=== PATIENT | male | born 1955 | race Caucasian/White ===

== ENCOUNTER 2020-12-19 08:51 | Outpatient (REF) | payer OTHER, SELFPAY ==
[2020-12-19 11:07] LABS: MANUAL DIFF FLAG NO
[2020-12-19 11:23] LABS: Basophils Percent Auto 0.6 % (0-2); Eosinophils Absolute Auto 0.3 X10*3/uL (0.0-0.4); Eosinophils Percent Auto 4.3 % (0-4); Imm Gran Abs Auto 0.04 X10*3/uL (0.00-0.03); Imm Gran Pct Auto 0.6 % (0.0-0.4); Lymphocytes Absolute Auto 1.9 X10*3/uL (1.2-4.9); Mean Corpuscular HGB Conc 33.3 g/dl (31.0-36.0); Mean Corpuscular Hemoglobin 32.1 pg (27.0-33.0); Mean Corpuscular Volume 96.4 fL (80-98); Mean Platelet Volume 10.5 fL (9.4-12.4); Monocytes Absolute Auto 0.7 X10*3/uL (0.1-1.2); Monocytes Percent Auto 10.4 % (2-11); Neutrophils Percent Auto 57.1 % (45-73); Platelet Count 194 X10*3/uL (160-400); Red Blood Count 5.29 X10*6/uL (4.60-5.80); Red Cell Distribution Width 12.5 % (11.0-16.0)
[2020-12-19 11:44] LABS: Estimated Average Glucose 123 mg/dL; Hemoglobin A1c % 5.9 %
[2020-12-19 12:08] LABS: Alanine Aminotransferase 108 U/L (0-40); Anion Gap 12 (12-20); Aspartate Amino Transferase 61 U/L (5-37); Blood Urea Nitrogen 15 mg/dL (9-16); Carbon Dioxide 30 mmol/L (22-29); Chloride 99 mmol/L (96-108); Glucose Fasting 116 mg/dL (60-99); Potassium 4.8 mmol/L (3.3-5.1); Sodium 136 mmol/L (135-145)
[2020-12-19 12:09] LABS: Creatinine Urine 146.68 mg/dL; Microalbum/Creatinine Ratio Ur 22.4 ug/mg cr
== END 2020-12-19 08:52 | disposition home or self-care (01) ==
LOC: HO.HMGCLDS 08:51
PROVIDERS: PCP Family Medicine; Visit Provider Family Medicine
DX: D45 Polycythemia vera (principal); I10 Essential (primary) hypertension; E11.9 Type 2 diabetes mellitus without complications; K75.81 Nonalcoholic steatohepatitis (NASH)
CPT/HCPCS: 36415; 80051; 82043; 82947; 83036; 84450; 84460; 84520; 85025

== ENCOUNTER 2021-06-17 07:54 | Outpatient (REF) | payer OTHER, SELFPAY ==
[2021-06-17 11:05] LABS: MANUAL DIFF FLAG NO
[2021-06-17 11:18] LABS: Basophils Percent Auto 0.6 % (0-2); Eosinophils Absolute Auto 0.2 X10*3/uL (0.0-0.4); Eosinophils Percent Auto 3.6 % (0-4); Hematocrit 48.4 % (42-52); Hemoglobin 16.3 g/dl (14.0-18.0); Imm Gran Abs Auto 0.03 X10*3/uL (0.00-0.03); Imm Gran Pct Auto 0.4 % (0.0-0.4); Lymphocytes Absolute Auto 1.8 X10*3/uL (1.2-4.9); Lymphocytes Percent Auto 27.3 % (20-40); Mean Corpuscular HGB Conc 33.7 g/dl (31.0-36.0); Mean Corpuscular Hemoglobin 32.2 pg (27.0-33.0); Mean Corpuscular Volume 95.7 fL (80-98); Mean Platelet Volume 10.7 fL (9.4-12.4); Monocytes Absolute Auto 0.8 X10*3/uL (0.1-1.2); Monocytes Percent Auto 11.2 % (2-11); Neutrophils Absolute Auto 3.8 X10*3/uL (2.0-8.3); Neutrophils Percent Auto 56.9 % (45-73); Platelet Count 195 X10*3/uL (160-400); Red Blood Count 5.06 X10*6/uL (4.60-5.80); Red Cell Distribution Width 12.7 % (11.0-16.0); White Blood Count 6.7 X10*3/uL (4.8-10.8)
[2021-06-17 12:01] LABS: Alanine Aminotransferase 72 U/L (0-40); Aspartate Amino Transferase 47 U/L (5-37); Glucose Fasting 111 mg/dL (60-99)
[2021-06-17 12:13] LABS: Estimated Average Glucose 114 mg/dL; Hemoglobin A1c % 5.6 %
== END 2021-06-17 07:55 | disposition home or self-care (01) ==
LOC: HO.HMGCLDS 07:54
PROVIDERS: PCP Family Medicine; Visit Provider Family Medicine
DX: E78.00 Pure hypercholesterolemia, unspecified (principal); E11.9 Type 2 diabetes mellitus without complications; K75.81 Nonalcoholic steatohepatitis (NASH)
CPT/HCPCS: 36415; 82947; 83036; 84450; 84460; 85025

== ENCOUNTER 2021-07-18 14:49 | Outpatient (REF) | payer OTHER, SELFPAY ==
[2021-07-18 15:52] LABS: Influenza A PCR NEGATIVE (Negative); Influenza B PCR NEGATIVE (Negative); Resp Syncy Virus RNA Qual PCR NEGATIVE (Negative); SARS COV2 PCR INHOUSE NEGATIVE (Negative)
== END 2021-07-18 14:50 | disposition home or self-care (01) ==
LOC: HO.LAB 14:49
PROVIDERS: PCP Family Medicine; Visit Provider Family Medicine
DX: Z20.822 Contact with and (suspected) exposure to COVID-19 (principal)
CPT/HCPCS: 0241U; 36415; C9803

== ENCOUNTER 2021-08-30 09:14 | Outpatient (REF) | payer OTHER, SELFPAY ==
[2021-08-30 11:20] LABS: MANUAL DIFF FLAG NO
[2021-08-30 11:34] LABS: Basophils Percent Auto 0.6 % (0-2); Eosinophils Absolute Auto 0.2 X10*3/uL (0.0-0.4); Eosinophils Percent Auto 3.4 % (0-4); Hemoglobin 16.4 g/dl (14.0-18.0); Imm Gran Abs Auto 0.03 X10*3/uL (0.00-0.03); Imm Gran Pct Auto 0.5 % (0.0-0.4); Lymphocytes Absolute Auto 1.7 X10*3/uL (1.2-4.9); Mean Corpuscular HGB Conc 34.9 g/dl (31.0-36.0); Mean Corpuscular Hemoglobin 32.9 pg (27.0-33.0); Mean Corpuscular Volume 94.2 fL (80.0-98.0); Mean Platelet Volume 10.5 fL (9.4-12.4); Monocytes Absolute Auto 0.7 X10*3/uL (0.1-1.2); Monocytes Percent Auto 11.6 % (2-11); Neutrophils Absolute Auto 3.6 x10*3/uL (2.0-8.3); Neutrophils Percent Auto 56.9 % (45-73); Platelet Count 183 X10*3/uL (160-400); Red Blood Count 4.99 X10*6/uL (4.60-5.80); Red Cell Distribution Width 12.7 % (11.0-16.0); White Blood Count 6.2 X10*3/uL (4.8-10.8)
[2021-08-30 11:45] LABS: Alanine Aminotransferase 66 U/L (0-40); Albumin Level 4.3 g/dL (3.5-5.0); Alkaline Phosphatase 53 U/L (39-117); Anion Gap 11 (12-20); Aspartate Amino Transferase 38 U/L (5-37); Bilirubin Total 0.9 mg/dL (0.0-1.0); Blood Urea Nitrogen 16 mg/dL (9-16); Calcium 9.4 mg/dL (8.4-10.2); Carbon Dioxide 26 mmol/L (22-29); Chloride 104 mmol/L (96-108); Estimated Glomerular Filt Rate > 60; Glucose Random 117 mg/dL (60-115); Potassium 4.4 mmol/L (3.3-5.1); Sodium 137 mmol/L (135-145); Total Protein 6.6 g/dL (6.5-8.0)
[2021-08-30 11:48] LABS: Cholesterol 168 mg/dL; Glucose Fasting 117 mg/dL (60-99); HDL Cholesterol 39 mg/dL; LDL Cholesterol Calculated 100 mg/dl; Triglycerides 145 mg/dL
[2021-08-30 12:17] LABS: Estimated Average Glucose 120 mg/dL; Hemoglobin A1c % 5.8 %
== END 2021-08-30 09:15 | disposition home or self-care (01) ==
LOC: HO.HMGCLDS 09:14
PROVIDERS: PCP Family Medicine; Visit Provider Dermatology
DX: E11.9 Type 2 diabetes mellitus without complications (principal); E78.00 Pure hypercholesterolemia, unspecified
CPT/HCPCS: 36415; 80053; 80061; 82947; 83036; 85025

== ENCOUNTER 2021-11-04 08:45 | Day surgery (SDC) | payer OTHER, SELFPAY ==
--- NOTE | 2021-11-04 09:09 | P.CONAN_ITS ---
HPI - Anesthesia Eval Consult details Narrative: 66 M for colonoscopy FORMERLY [facility] Past Medical History Medical History (Updated 10/28/21 @ 11:51 by Kylie Quevedo, RN) Elevated liver enzymes Family hx of colon cancer Fatty liver Gout History of pneumonia Psoriasis Family History Family history of problems with anesthesia: No Surgical History Surgical History (Updated 10/28/21 @ 11:51 by Kylie Quevedo RN) History of left inguinal hernia repair Hx of arthroscopy of left knee Hx of arthroscopy of right knee Hx of cholecystectomy Hx of colonoscopy Hx of eye surgery History of Problems with Anesthesia: No Social History Social History Patient Tobacco Use Status: Never used Tobacco Use of substances other than those prescribed or required for medical reasons: No Are you DNR?: No Advance Directives: No Advance Directives Information Provided: Yes Recently lost weight without trying: No Nutrition Risks: No Nutritional Risk Meds Allergies Allergy/AdvReac Type Severity Reaction Status Date / Time No Known Allergies Allergy Verified 11/04/21 09:15 [No Known Allergies*] Active Medications: Current Medications Sodium Biphosphate/Sodium Phosphate (Sodium Phosphate,Riley-Dibasic 133 Ml Enema) 133 ml [place] ONCE PRN PRN Reason: Poor Colonoscopy Prep Results Home Medications Medication Instructions Recorded Confirmed Last Taken Type allopurinol 300 mg tablet 300 mg PO DAILY 10/28/21 10/28/21 Unknown History aspirin 81 mg tablet,delayed 81 mg PO DAILY 10/28/21 10/28/21 Unknown History release guselkumab 100 mg/mL subcutaneous 100 mg SUBCUT Q8W 10/28/21 10/28/21 Unknown History auto-injector (Tremfya) lisinopril 10 mg tablet 10 mg PO DAILY 10/28/21 10/28/21 11/04/21 History Exam Exam Date and Time: November 04, [id number] Airway Mallampati Class: II TM Dist: >3cm Neck ROM: Full Loose/Missing/Broken Teeth: Yes (Chipped , fillings ) Heart: rrr Lungs: bl breath sounds Assessment and Plan Assessment Anesthesia Assessment: Anesthesia Plan Discussed Final Anesthetic Review Family History of Problems with Anesthesia: No History of Problems with Anesthesia: No NPO: Yes ASA Class: III and Final Preanesthetic Review: Meds/Allgs Chart Reviewed and Anes Risks/Benef Reviewed Patient Risk: Intermediate Procedure Risk: Intermediate Anesthetic Plan Anesthetic Plan: MAC: Disposition: Standard PACU
[2021-11-04 09:19] VITALS: BMI 37.3
[2021-11-04] MEDS: Lactated Ringers 1,000 ML 20 ML IVCONT (09:40)
[2021-11-04 09:41] VITALS: BP 141/86; PULSE 85; RESP 16; TEMP 36.6; O2SAT 95
--- NOTE | 2021-11-04 11:34 | PM.OP ---
Brief Operative Note Date of Service: 11/04/21 Pre-op diagnosis: Screening Post-op diagnosis: other (Colon polyp) Procedure: Colonoscopy roldan the cecum and TI with bx/removal of polyp Surgeon: Jhonny Still Anesthesia: MAC Was an College Admissions Counselor used for this Procedure?: No Estimated blood loss (mL): 2.0 Pathology: other (A. Polyp at 20cm) Condition: stable Disposition: PACU
[2021-11-04 11:35] VITALS: BP 101/59; PULSE 100; RESP 16; TEMP 36.7; O2SAT 95
[2021-11-04 11:50] VITALS: BP 111/85; PULSE 99; RESP 18; TEMP 36.7; O2SAT 97
--- NOTE | 2021-11-04 12:35 | OP_ITS ---
SURGEON: Jhonny Still MD INDICATIONS: The patient presents for evaluation of personal history of tubular adenoma of the colon, and family history of colon cancer. Full consent was obtained from him for this, including risks of bleeding and perforation. PREOPERATIVE DIAGNOSIS: POSTOPERATIVE DIAGNOSIS: PROCEDURE PERFORMED: Colonoscopy to the cecum and terminal ileum with biopsy and removal of polyp. ESTIMATED BLOOD LOSS: COMPLICATIONS: ANESTHESIA: Monitored anesthesia care. ASSISTANTS: SPECIMENS: PREOPERATIVE DIAGNOSES: Colorectal cancer screening, personal history of tubular adenoma of the colon, and family history of colon cancer. POSTOPERATIVE DIAGNOSES: Colorectal cancer screening, personal history of tubular adenoma of the colon, family history of colon cancer, small colon polyp, diverticulosis, and internal hemorrhoids. DESCRIPTION OF PROCEDURE: The patient was placed in the left lateral decubitus position. The digital rectal exam revealed no abnormalities. The Olympus video pediatric colonoscope was entered into the rectum and advanced easily to the cecum. Once in the cecum, I did identify normal-appearing cecal pouch with appendiceal orifice and a normal-appearing ileocecal valve. The terminal ileum was cannulated and appeared normal. The scope was withdrawn back in the colon. The entire cecum and ileocecal valve appeared normal. The scope was slowly withdrawn assessing all mucosal surfaces carefully. Preparation was excellent. At 20 cm, was a flat 3 or 4 mm polyp, which was biopsied and completely removed with cold biopsy forceps. I did not visualize any other polyps, colitis, or angiodysplasia. There was a mild amount of sigmoid diverticulosis. In the rectum, scope was retroflexed visualizing internal hemorrhoids, but no other pathology. The rectal mucosa appeared normal. The scope was straightened and withdrawn from the patient. He tolerated the procedure well and was returned to the recovery area in stable condition. IMPRESSION: 1. Small colon polyp, status post biopsy removal. 2. Diverticulosis. 3. Internal hemorrhoids. PLAN: The results of the biopsies will be checked. I would recommend a repeat colonoscopy in 5 years for further screening. He was advised to see me again by the fall for a followup of his elevated LFTs and fatty liver. He is scheduled for an ultrasound and lab work at the end of this month. MD MEGAN Rivera/AGUSTÍN / [id number]
== END 2021-11-04 12:25 | disposition home or self-care (01) ==
PROVIDERS: PCP Family Medicine; Visit Provider Internal Medicine
PROC: 0DJD8ZZ Inspection of Lower Intestinal Tract, Via Natural or Artificial Opening Endoscopic (ICD-10-PCS; CPT 45378; principal; 2021-11-04 10:20)
DX: Z12.11 Encounter for screening for malignant neoplasm of colon (principal); Z86.010 Personal history of colon polyps; Z80.0 Family history of malignant neoplasm of digestive organs; K63.5 Polyp of colon; K57.30 Diverticulosis of large intestine without perforation or abscess without bleeding; K64.8 Other hemorrhoids; R74.8 Abnormal levels of other serum enzymes; K76.0 Fatty (change of) liver, not elsewhere classified; M10.9 Gout, unspecified; Z79.82 Long term (current) use of aspirin; Z79.899 Other long term (current) drug therapy; Z90.49 Acquired absence of other specified parts of digestive tract; Z87.01 Personal history of pneumonia (recurrent)
CPT/HCPCS: 45380; 88305

== ENCOUNTER 2021-11-13 09:52 | Outpatient (REF) | payer OTHER, SELFPAY ==
[2021-11-13 11:47] LABS: Alanine Aminotransferase 61 U/L (0-40); Anion Gap 15 (12-20); Aspartate Amino Transferase 35 U/L (5-37); Blood Urea Nitrogen 16 mg/dL (9-16); Carbon Dioxide 27 mmol/L (22-29); Chloride 104 mmol/L (96-108); Estimated Glomerular Filt Rate > 60; Potassium 4.6 mmol/L (3.3-5.1); Sodium 141 mmol/L (135-145)
[2021-11-13 11:48] LABS: Alanine Aminotransferase 60 U/L (0-40); Albumin Level 4.3 g/dL (3.5-5.0); Alkaline Phosphatase 56 U/L (39-117); Aspartate Amino Transferase 36 U/L (5-37); Bilirubin Direct 0.3 mg/dL (0.0-0.5); Bilirubin Total 0.7 mg/dL (0.0-1.0); Total Protein 6.8 g/dL (6.5-8.0)
[2021-11-18 14:57] LABS: FIB-ALT 55 U/L (9-46); FIB-Alpha-2-Macroglobulin 241 mg/dL (106-279); FIB-Apolipoprotein A1 144 mg/dL (94-176); FIB-GGT 34 U/L (3-70); FIB-Haptoglobin 145 mg/dL (43-212); FIB-Total Bilirubin 0.6 mg/dL (0.2-1.2); Liver Fibrosis Score 0.41; Liver Fibrosis Stage F1-F2; Nec Inflam Act Grade A1-A2; Nec Inflam Act Score 0.36
== END 2021-11-13 09:53 | disposition home or self-care (01) ==
LOC: HO.HMGCLDS 09:52
PROVIDERS: PCP Family Medicine; Visit Provider Internal Medicine
DX: I10 Essential (primary) hypertension (principal); K75.81 Nonalcoholic steatohepatitis (NASH); R74.8 Abnormal levels of other serum enzymes
CPT/HCPCS: 36415; 80051; 80076; 81596; 82565; 84450; 84460; 84520

== ENCOUNTER 2021-11-18 08:37 | Outpatient (REF) | payer OTHER, SELFPAY ==
--- NOTE | ~2021-11-18 | US_ITS ---
EXAMINATION: US COMPLETE ABDOMEN WITH LIVER ELASTOGRAPHY CLINICAL INFORMATION: Elevated liver enzymes. COMPARISON: Ultrasound abdomen 05/12/2016. TECHNIQUE: Real-time imaging of the abdominal viscera. Noninvasive ultrasound liver fibrosis assessment is performed using Jaquan ElastPQ point quantification shear wave elastography (2D-SWE) with a C5-2 MHz transducer. Multiple elastography samples are obtained. FINDINGS: PANCREAS: The pancreas is partially obscured from overlying gas. The visualized proximal body and the head of the pancreas are unremarkable. ABDOMINAL AORTA: The proximal, middle, and distal aortic segments are normal in caliber. INFERIOR VENA CAVA: Visualized portions are normal. LIVER: The liver demonstrates normal size and contour with increased echogenicity. No focal lesion or intrahepatic biliary duct dilatation. The right lobe measures 15.5 cm in length. The left lobe measures 9.6 cm in length. Portal flow is hepatopetal. Shear wave liver elastography median stiffness is 2.22 m/s (reference: Normal median stiffness is 1.3 m/s or less). IQR/median stiffness to assess sampling precision is 0.15 (reference: Good quality data set is IQR/median stiffness of 0.15 or less). GALLBLADDER: Normal. The gallbladder is physiologically distended without evidence of stones, sludge, polyps, wall thickening or pericholecystic fluid. COMMON BILE DUCT: Normal in caliber measuring 0.6 cm in diameter. RIGHT KIDNEY: Normal. No hydronephrosis. No renal calculi or focal parenchymal lesions. The kidney measures 11.9 cm in maximum dimension. LEFT KIDNEY: Normal. No hydronephrosis. No renal calculi or focal parenchymal lesions. The kidney measures 11.7 cm in maximum dimension. SPLEEN: Normal. The spleen measures 12.5 cm in maximum dimension. FREE FLUID: None. US/US abdomen comp w elastography IMPRESSION: 1. Hepatic steatosis without focal lesion. 2. The rest of the abdominal ultrasound is unremarkable. 3. Liver Elastography: Median liver stiffness measures 2.22 m/s suggestive of cACLD ruled in. REFERENCE: Society of Radiologists in Ultrasound Liver Stiffness Thresholds (2020): LIVER STIFFNESS THRESHOLDS: *Liver Stiffness equal or less than 1.3 m/s: High probability of being normal. *Liver Stiffness less than 1.7 m/s: In the absence of other known clinical signs, rules out compensated advanced chronic liver disease. *Liver Stiffness 1.7-2.1 m/s: Suggestive of compensated advanced chronic liver disease but need further test for confirmation. *Liver Stiffness over 2.1 m/s: Rules in compensated advanced chronic liver disease. *Liver Stiffness over 2.4 m/s: Suggestive of clinically significant portal hypertension. QUALITY OF DATA SET: *IQR/Median value equal or less than 0.15 implies a quality data set. *IQR/Median value over 0.15 implies a poor quality data set. SIGNIFICANT CHANGE FROM PRIOR EXAM: Significant change if liver stiffness measurement is 10% or greater from prior exam. OTHER CONSIDERATIONS: The stage of liver fibrosis may be overestimated in the setting of acute hepatitis, liver inflammation, elevated liver function tests, hepatic vascular congestion, obstructive cholestasis, non-fasting state, and infiltrative diseases such as amyloidosis and lymphoma. In some patients with NAFLD, the liver stiffness thresholds for compensated advanced chronic liver disease may be lower. In causes other than viral hepatitis and NAFLD, liver stiffness thresholds are not well established.
== END 2021-11-18 08:38 | disposition home or self-care (01) ==
LOC: HO.US 08:37
PROVIDERS: PCP Family Medicine; Visit Provider Internal Medicine
DX: R74.8 Abnormal levels of other serum enzymes (principal); K76.0 Fatty (change of) liver, not elsewhere classified
CPT/HCPCS: 76705; 76981

== ENCOUNTER 2022-02-05 08:16 | Outpatient (REF) | payer OTHER, SELFPAY ==
[2022-02-05 11:23] LABS: MANUAL DIFF FLAG NO
[2022-02-05 11:34] LABS: Basophils Absolute Auto 0.1 X10*3/uL (0.0-0.2); Basophils Percent Auto 0.7 % (0-2); Eosinophils Absolute Auto 0.3 X10*3/uL (0.0-0.4); Eosinophils Percent Auto 4.3 % (0-4); Hematocrit 48.9 % (42.0-52.0); Hemoglobin 16.5 g/dl (14.0-18.0); Imm Gran Abs Auto 0.03 X10*3/uL (0.00-0.03); Imm Gran Pct Auto 0.4 % (0.0-0.4); Lymphocytes Absolute Auto 1.9 X10*3/uL (1.2-4.9); Mean Corpuscular HGB Conc 33.7 g/dl (31.0-36.0); Mean Platelet Volume 10.5 fL (9.4-12.4); Monocytes Absolute Auto 0.8 X10*3/uL (0.1-1.2); Monocytes Percent Auto 11.9 % (2-11); Neutrophils Absolute Auto 3.9 x10*3/uL (2.0-8.3); Neutrophils Percent Auto 55.7 % (45-73); Platelet Count 189 X10*3/uL (160-400); Red Blood Count 5.15 X10*6/uL (4.60-5.80); Red Cell Distribution Width 12.6 % (11.0-16.0)
[2022-02-05 11:43] LABS: Creatinine Urine 147.98 mg/dL; Microalbum/Creatinine Ratio Ur 23.6 ug/mg cr
[2022-02-05 11:56] LABS: Estimated Average Glucose 131 mg/dL; Hemoglobin A1c % 6.2 %
[2022-02-05 12:00] LABS: Glucose Fasting 133 mg/dL (60-99)
== END 2022-02-05 08:17 | disposition home or self-care (01) ==
LOC: HO.HMGCLDS 08:16
PROVIDERS: PCP Family Medicine; Visit Provider Family Medicine
DX: D64.9 Anemia, unspecified (principal); E11.9 Type 2 diabetes mellitus without complications
CPT/HCPCS: 36415; 82043; 82947; 83036; 85025

== ENCOUNTER 2022-04-04 11:10 | Outpatient (REF) | payer OTHER, SELFPAY ==
[2022-04-04 15:44] LABS: Alanine Aminotransferase 89 U/L (0-40); Anion Gap 14 (12-20); Aspartate Amino Transferase 53 U/L (5-37); Blood Urea Nitrogen 15 mg/dL (9-16); Carbon Dioxide 26 mmol/L (22-29); Chloride 104 mmol/L (96-108); Estimated Glomerular Filt Rate > 60; Potassium 4.6 mmol/L (3.3-5.1); Sodium 139 mmol/L (135-145)
== END 2022-04-04 11:11 | disposition home or self-care (01) ==
LOC: HO.HMGCLDS 11:10
PROVIDERS: Visit Provider Family Medicine
DX: I10 Essential (primary) hypertension (principal); K75.81 Nonalcoholic steatohepatitis (NASH)
CPT/HCPCS: 36415; 80051; 82565; 84450; 84460; 84520

== ENCOUNTER 2022-07-15 08:19 | Outpatient (REF) | payer OTHER, SELFPAY ==
[2022-07-15 11:48] LABS: Alanine Aminotransferase 67 U/L (0-40); Anion Gap 16 (12-20); Aspartate Amino Transferase 42 U/L (5-37); Carbon Dioxide 26 mmol/L (22-29); Chloride 103 mmol/L (96-108); Estimated Glomerular Filt Rate 59; Glucose Fasting 132 mg/dL (60-99); Potassium 4.8 mmol/L (3.3-5.1); Sodium 140 mmol/L (135-145)
[2022-07-15 12:09] LABS: Estimated Average Glucose 120 mg/dL; Hemoglobin A1c % 5.8 %
[2022-07-15 12:24] LABS: Creatinine Urine 209.52 mg/dL; Microalbum/Creatinine Ratio Ur 18.6 ug/mg cr
[2022-07-22 00:17] LABS: FIB-ALT 60 U/L (9-46); FIB-Alpha-2-Macroglobulin 254 mg/dL (106-279); FIB-Apolipoprotein A1 167 mg/dL (94-176); FIB-GGT 37 U/L (3-70); FIB-Haptoglobin 146 mg/dL (43-212); FIB-Total Bilirubin 0.8 mg/dL (0.2-1.2); Liver Fibrosis Score 0.44; Liver Fibrosis Stage F1-F2; Nec Inflam Act Grade A1-A2; Nec Inflam Act Score 0.41
== END 2022-07-15 08:20 | disposition home or self-care (01) ==
LOC: HO.HMGCLDS 08:19
PROVIDERS: PCP Family Medicine; Visit Provider Family Medicine
DX: E11.9 Type 2 diabetes mellitus without complications (principal); I10 Essential (primary) hypertension; K75.81 Nonalcoholic steatohepatitis (NASH)
CPT/HCPCS: 36415; 80051; 81596; 82043; 82565; 82947; 83036; 84450; 84460

== ENCOUNTER 2022-09-26 09:01 | Outpatient (REF) | payer OTHER, SELFPAY ==
[2022-09-26 11:29] LABS: MANUAL DIFF FLAG NO
[2022-09-26 11:50] LABS: Basophils Absolute Auto 0.1 X10*3/uL (0.0-0.2); Basophils Percent Auto 0.9 % (0-2); Eosinophils Absolute Auto 0.3 X10*3/uL (0.0-0.4); Eosinophils Percent Auto 3.9 % (0-4); Hematocrit 49.6 % (42.0-52.0); Hemoglobin 17.2 g/dl (14.0-18.0); Imm Gran Abs Auto 0.04 X10*3/uL (0.00-0.03); Imm Gran Pct Auto 0.6 % (0.0-0.4); Lymphocytes Absolute Auto 1.7 X10*3/uL (1.2-4.9); Mean Corpuscular HGB Conc 34.7 g/dl (31.0-36.0); Mean Corpuscular Hemoglobin 32.7 pg (27.0-33.0); Mean Corpuscular Volume 94.3 fL (80.0-98.0); Mean Platelet Volume 10.6 fL (9.4-12.4); Monocytes Absolute Auto 0.7 X10*3/uL (0.1-1.2); Monocytes Percent Auto 10.4 % (2-11); Neutrophils Absolute Auto 4.2 x10*3/uL (2.0-8.3); Neutrophils Percent Auto 60.2 % (45-73); Platelet Count 206 X10*3/uL (160-400); Red Blood Count 5.26 X10*6/uL (4.60-5.80); Red Cell Distribution Width 12.2 % (11.0-16.0)
[2022-09-26 12:22] LABS: Creatinine Urine 135.64 mg/dL; Microalbum/Creatinine Ratio Ur 20.6 ug/mg cr
[2022-09-26 12:26] LABS: Estimated Average Glucose 123 mg/dL; Hemoglobin A1c % 5.9 %
[2022-09-26 13:29] LABS: Alanine Aminotransferase 69 U/L (0-40); Aspartate Amino Transferase 50 U/L (5-37); Glucose Fasting 128 mg/dL (60-99)
[2022-09-26 13:37] LABS: Alanine Aminotransferase 65 U/L (0-40); Albumin Level 4.4 g/dL (3.5-5.0); Alkaline Phosphatase 54 U/L (39-117); Anion Gap 13 (12-20); Aspartate Amino Transferase 49 U/L (5-37); Bilirubin Total 0.8 mg/dL (0.0-1.0); Blood Urea Nitrogen 15 mg/dL (9-16); Calcium 9.6 mg/dL (8.4-10.2); Carbon Dioxide 27 mmol/L (22-29); Chloride 103 mmol/L (96-108); Estimated Glomerular Filt Rate > 60; Glucose Random 129 mg/dL (60-115); Potassium 4.6 mmol/L (3.3-5.1); Sodium 138 mmol/L (135-145); Total Protein 6.8 g/dL (6.5-8.0)
[2022-09-29 08:15] LABS: HBS Num1 0.63 mIU/mL (0-7.99); HBc Num1 0.12 S/CO (0.00-0.79); HBsAGNum1 0.28 S/CO (0.00-0.99); Hepatitis A Antibody IgM 0.13 Index (0-0.79); Hepatitis B Core Antibody Nonreactive (Nonreactive); Hepatitis B Surface Antigen Negative (Negative); ~HepC Num1 0.14 S/CO (0.00-0.79); ~Hepatitis A Antibody IgM Nonreactive (Nonreactive); ~Hepatitis B Surface Antibody NONREACTIVE (Nonreactive); ~Hepatitis C Antibody Nonreactive (Nonreactive)
[2022-09-30 07:49] LABS: TS Negative Control Passed; TS Panel A 1; TS Panel B 0; TS Positive Control Passed; TSpotTB Negative (Negative)
== END 2022-09-26 09:02 | disposition home or self-care (01) ==
LOC: HO.HMGCLDS 09:01
PROVIDERS: PCP Family Medicine; Visit Provider Family Medicine
DX: L40.0 Psoriasis vulgaris (principal); E11.9 Type 2 diabetes mellitus without complications; K75.81 Nonalcoholic steatohepatitis (NASH)
CPT/HCPCS: 36415; 80053; 82043; 82947; 83036; 84450; 84460; 85025; 86481; 86704; 86706; 86709; 86803; 87340

== ENCOUNTER 2023-01-06 08:26 | Outpatient (REF) | payer OTHER, SELFPAY ==
[2023-01-06 11:56] LABS: Estimated Average Glucose 126 mg/dL
[2023-01-06 12:23] LABS: Alanine Aminotransferase 67 U/L (0-40); Aspartate Amino Transferase 43 U/L (5-37); Glucose Fasting 125 mg/dL (60-99)
== END 2023-01-06 08:27 | disposition home or self-care (01) ==
LOC: HO.HMGCLDS 08:26
PROVIDERS: PCP Family Medicine; Visit Provider Family Medicine
DX: E11.9 Type 2 diabetes mellitus without complications (principal); K75.81 Nonalcoholic steatohepatitis (NASH)
CPT/HCPCS: 36415; 82947; 83036; 84450; 84460

== ENCOUNTER 2023-03-03 08:35 | Outpatient (REF) | payer OTHER, SELFPAY ==
[2023-03-03 11:55] LABS: B Type Natriuretic Peptide < 10 pg/mL (<100)
[2023-03-03 12:11] LABS: Anion Gap 14 (12-20); Carbon Dioxide 25 mmol/L (22-29); Chloride 104 mmol/L (96-108); Cholesterol 170 mg/dL; Estimated Glomerular Filt Rate > 60; Glucose Fasting 119 mg/dL (60-99); HDL Cholesterol 38 mg/dL; LDL Cholesterol Calculated 101 mg/dl; Potassium 4.6 mmol/L (3.3-5.1); Sodium 138 mmol/L (135-145); Thyroid Stimulating Hormone 2.99 uIU/mL (0.32-4.0); Triglycerides 156 mg/dL
== END 2023-03-03 08:36 | disposition home or self-care (01) ==
LOC: HO.HMGCLDS 08:35
PROVIDERS: PCP Family Medicine; Visit Provider Family Medicine
DX: I10 Essential (primary) hypertension (principal); E11.9 Type 2 diabetes mellitus without complications; R00.0 Tachycardia, unspecified
CPT/HCPCS: 36415; 80051; 80061; 82565; 82947; 83880; 84439; 84443

== ENCOUNTER 2023-08-03 08:50 | Outpatient (REF) | payer OTHER, SELFPAY ==
[2023-08-03 11:25] LABS: MANUAL DIFF FLAG NO
[2023-08-03 11:33] LABS: Basophils Absolute Auto 0.1 X10*3/uL (0.0-0.2); Basophils Percent Auto 0.9 % (0-2); Eosinophils Absolute Auto 0.2 X10*3/uL (0.0-0.4); Eosinophils Percent Auto 3.7 % (0-4); Hematocrit 46.2 % (42.0-52.0); Hemoglobin 15.8 g/dl (14.0-18.0); Imm Gran Abs Auto 0.03 X10*3/uL (0.00-0.03); Imm Gran Pct Auto 0.5 % (0.0-0.4); Lymphocytes Absolute Auto 1.7 X10*3/uL (1.2-4.9); Lymphocytes Percent Auto 29.9 % (20-40); Mean Corpuscular HGB Conc 34.2 g/dl (31.0-36.0); Mean Corpuscular Hemoglobin 32.7 pg (27.0-33.0); Mean Corpuscular Volume 95.7 fL (80.0-98.0); Mean Platelet Volume 10.9 fL (9.4-12.4); Monocytes Absolute Auto 0.7 X10*3/uL (0.1-1.2); Monocytes Percent Auto 11.6 % (2-11); Neutrophils Percent Auto 53.4 % (45-73); Platelet Count 173 X10*3/uL (160-400); Red Blood Count 4.83 X10*6/uL (4.60-5.80); Red Cell Distribution Width 12.7 % (11.0-16.0); White Blood Count 5.6 X10*3/uL (4.8-10.8)
[2023-08-03 11:45] LABS: Estimated Average Glucose 111 mg/dL; Hemoglobin A1c % 5.5 % (<6.0)
[2023-08-03 12:36] LABS: Alanine Aminotransferase 62 U/L (0-40); Albumin Level 4.2 g/dL (3.5-5.0); Alkaline Phosphatase 49 U/L (39-117); Anion Gap 13 (12-20); Aspartate Amino Transferase 37 U/L (5-37); Bilirubin Total 0.7 mg/dL (0.0-1.0); Blood Urea Nitrogen 16 mg/dL (9-16); Calcium 9.5 mg/dL (8.4-10.2); Carbon Dioxide 25 mmol/L (22-29); Chloride 105 mmol/L (96-108); Estimated Glomerular Filt Rate > 60; Glucose Random 110 mg/dL (60-115); Potassium 4.2 mmol/L (3.3-5.1); Sodium 139 mmol/L (135-145); Total Protein 6.7 g/dL (6.5-8.0)
[2023-08-03 12:47] LABS: Creatinine Urine 89.59 mg/dL; Microalbum/Creatinine Ratio Ur 7.8 ug/mg cr (<30)
== END 2023-08-03 08:51 | disposition home or self-care (01) ==
LOC: HO.HMGCLDS 08:50
PROVIDERS: PCP Family Medicine; Visit Provider Family Medicine
DX: I10 Essential (primary) hypertension (principal); E11.9 Type 2 diabetes mellitus without complications; L40.0 Psoriasis vulgaris
CPT/HCPCS: 36415; 80053; 82043; 82570; 83036; 85025

== ENCOUNTER 2024-02-24 08:54 | Outpatient (REF) | payer MEDICARE, SELFPAY ==
[2024-02-24 10:59] LABS: Estimated Average Glucose 111 mg/dL; Hemoglobin A1c % 5.5 % (<6.0)
[2024-02-24 11:22] LABS: Alanine Aminotransferase 47 U/L (0-40); Anion Gap 13 (12-20); Aspartate Amino Transferase 32 U/L (5-37); Blood Urea Nitrogen 16 mg/dL (9-16); Carbon Dioxide 24 mmol/L (22-29); Chloride 106 mmol/L (96-108); Estimated Glomerular Filt Rate > 60; Glucose Fasting 116 mg/dL (60-99); Potassium 4.3 mmol/L (3.3-5.1); Sodium 139 mmol/L (135-145)
== END 2024-02-24 08:55 | disposition home or self-care (01) ==
LOC: HO.HMGCLDS 08:54
PROVIDERS: PCP Family Medicine; Visit Provider Family Medicine
DX: I10 Essential (primary) hypertension (principal); K75.81 Nonalcoholic steatohepatitis (NASH); E11.9 Type 2 diabetes mellitus without complications
CPT/HCPCS: 36415; 80051; 82565; 82947; 83036; 84450; 84460; 84520

== ENCOUNTER 2024-05-05 19:35 | Emergency (ER) | payer MEDICARE, SELFPAY ==
--- NOTE | ~2024-05-05 | XR_ITS ---
EXAMINATION: XR CHEST CLINICAL INFORMATION: Shortness of breath and Covid COMPARISON: 03/11/2018 TECHNIQUE: Frontal view of the chest was obtained. FINDINGS: Lungs are hypoinflated. Heart size normal. Some mild bronchial thickening may be present. No consolidations, effusions or lung masses. XR/XR chest 1V IMPRESSION: Hypoinflated lungs with possible mild bronchial thickening. No focal consolidations.
[2024-05-05 19:52] VITALS: BP 140/82; PULSE 118; O2SAT 94; BMI 34.0
[2024-05-05 19:55] VITALS: BP 115/67; PULSE 110; RESP 20; TEMP 38.8; O2SAT 93
--- NOTE | 2024-05-05 20:02 | ECG_ITS ---
Test Reason : SHORTNESS IF BREATH Blood Pressure : / mmHG Vent. Rate : 108 BPM Atrial Rate : 108 BPM P-R Int : 168 ms QRS Dur : 092 ms QT Int : 304 ms P-R-T Axes : 018 -11 029 degrees QTc Int : 407 ms Sinus tachycardia Incomplete right bundle branch block Borderline ECG When compared with ECG of 13-AUG-2015 09:27, No significant change was found Referred By: Generic ED Physician Electronically Signed By:BELEM PRO MD
[2024-05-05 20:37] LABS: MANUAL DIFF FLAG NO
[2024-05-05 20:39] LABS: Basophils Percent Auto 0.3 % (0-2); Eosinophils Absolute Auto 0.1 X10*3/uL (0.0-0.4); Eosinophils Percent Auto 0.5 % (0-4); Hematocrit 42.9 % (42.0-52.0); Imm Gran Abs Auto 0.05 X10*3/uL (0.00-0.03); Imm Gran Pct Auto 0.4 % (0.0-0.4); Lymphocytes Absolute Auto 0.5 X10*3/uL (1.2-4.9); Lymphocytes Percent Auto 4.4 % (20-40); Mean Corpuscular Hemoglobin 32.9 pg (27.0-33.0); Mean Corpuscular Volume 94.1 fL (80.0-98.0); Mean Platelet Volume 9.9 fL (9.4-12.4); Monocytes Absolute Auto 0.9 X10*3/uL (0.1-1.2); Neutrophils Absolute Auto 10.1 x10*3/uL (2.0-8.3); Neutrophils Percent Auto 86.4 % (45-73); Platelet Count 117 X10*3/uL (160-400); Red Blood Count 4.56 X10*6/uL (4.60-5.80); Red Cell Distribution Width 12.8 % (11.0-16.0); White Blood Count 11.7 X10*3/uL (4.8-10.8)
[2024-05-05 21:37] LABS: Anion Gap 15 (12-20); Blood Urea Nitrogen 16 mg/dL (9-16); Calcium 9.3 mg/dL (8.4-10.2); Carbon Dioxide 23 mmol/L (22-29); Chloride 105 mmol/L (96-108); Creatinine Clr Calc Pharmacy 82.3; Estimated Glomerular Filt Rate > 60; Glucose Random 123 mg/dL (60-115); Potassium 4.1 mmol/L (3.3-5.1); Sodium 139 mmol/L (135-145)
[2024-05-05 22:22] VITALS: BP 105/64; PULSE 99; RESP 16; TEMP 37.5; O2SAT 93
--- NOTE | 2024-05-05 23:48 | ED.URI ---
HPI - URI/Sore Throat General Chief Complaint: Upper Respiratory Symptoms Stated Complaint: sob COVID + Time Seen by Provider: 05/05/24 23:29 History of Present Illness HPI Narrative: 68-year-old male with a history of psoriasis on a biologic. History of gout on allopurinol presented today with having coughing congestion upper respiratory symptoms. Patient family and him all tested positive for COVID. Feeling weak tired. Patient is vaccinated for COVID x4. Patient has no history diabetes. Feels weak and tired. Related Data Home Medications ?Medication ?Instructions ?Recorded ?Confirmed allopurinol 300 mg tablet 300 mg PO DAILY 10/28/21 10/28/21 aspirin 81 mg tablet,delayed 81 mg PO DAILY 10/28/21 10/28/21 release guselkumab 100 mg/mL subcutaneous 100 mg subcut Q8W 10/28/21 10/28/21 auto-injector (Tremfya) lisinopril 10 mg tablet 10 mg PO DAILY 10/28/21 10/28/21 Allergies Allergy/AdvReac Type Severity Reaction Status Date / Time No Known Allergies Allergy Verified 05/05/24 19:54 [No Known Allergies*] Review of Systems Review of Systems: Positive coughing congestion upper respiratory symptoms Yes all other systems are reviewed and are negative PMFSH Past Medical History Attestation statement: The following information was validated with the patient. Medical History Family hx of colon cancer Elevated liver enzymes History of pneumonia Psoriasis Fatty liver Gout Surgical History Hx of colonoscopy Hx of arthroscopy of left knee Hx of eye surgery Hx of arthroscopy of right knee History of left inguinal hernia repair Hx of cholecystectomy Social History Social History Patient Tobacco Use Status: Never used Tobacco Smoked in Last 30 Days: No Advance Directives: No Advance Directives Information Provided: No Physical Exam Vital Signs: Vital Signs: Last Vital Signs Temp 99.5 F 05/05/24 22:22 Pulse 99 05/05/24 22:22 Resp 16 05/05/24 22:22 BP 105/64 05/05/24 22:22 Pulse Ox 93 05/05/24 22:22 O2 Del Method Room Air 07/18/24 22:22 BMI result Body Mass Index 34.0 Appearance: Alert. Oriented X3. No acute distress. Eyes: Pupils equal, round and reactive to light. ENT: Pharynx normal. Neck: Normal inspection. Neck supple. No lymph nodes noted. No crepitus CVS: Normal heart rate and rhythm. Pulses normal. Normal S1 and S2 Respiratory: No respiratory distress. Breath sounds normal. No Wheezing. No rales Abdomen: Soft and nontender. No rigidity. No distention. good BS x4 Skin: Skin warm and dry. Normal skin color. Normal skin turgor. Extremities: No lower extremity edema. Neurovascular intact to all extremities. No Lacerations. No Rash Neuro: Oriented X 3. No motor deficit. No sensory deficit. Moving all extermities. No slurred speech Medical Decision Making Medical Decision Making [facility] Narrative: Patient's O2 sat was 96% on room air on my exam. He is well-appearing he is in no acute distress his lungs are clear his hemoglobin is 15 there is no signs of anemia. He is vaccinated. He is not a diabetic. Discussed with patient treatment using Paxlovid. At this time risk and benefit of taking the medication. Will hydrate with a L of fluids. Close follow-up on an outpatient basis. Differential Diagnosis Differential Diagnoses: The differential diagnosis associated with the presentation includes COVID, pneumonia Admission/Observation Consideration of admission/observation: Escalation of care including admission/observation considered Lab Data [facility] Lab Attestation statement: I reviewed the patient's lab results. 05/05/24 20:33 05/05/24 21:08 Labs: Lab Results 05/05/24 05/05/24 Range/Units 20:33 21:08 WBC 11.7 H (4.8-10.8) X10*3/uL RBC 4.56 L (4.60-5.80) X10*6/uL Hgb 15.0 (14.0-18.0) g/dl Hct 42.9 (42.0-52.0) % MCV 94.1 (80.0-98.0) fL MCH 32.9 (27.0-33.0) pg MCHC 35.0 (31.0-36.0) g/dl RDW 12.8 (11.0-16.0) % Plt Count 117 L D (160-400) X10*3/uL MPV 9.9 (9.4-12.4) fL Immature Gran % (Auto) 0.4 (0.0-0.4) % Neut % (Auto) 86.4 H (45-73) % Lymph % (Auto) 4.4 L (20-40) % [place] % (Auto) 8.0 (2-11) % Eos % (Auto) 0.5 (0-4) % Baso % (Auto) 0.3 (0-2) % Lymph # (Auto) 0.5 L (1.2-4.9) X10*3/uL [place] # (Auto) 0.9 (0.1-1.2) X10*3/uL Eos # (Auto) 0.1 (0.0-0.4) X10*3/uL Baso # (Auto) 0.0 (0.0-0.2) X10*3/uL Abs Immat Gran (auto) 0.05 H (0.00-0.03) X10*3/uL Absolute Neuts (auto) 10.1 H (2.0-8.3) x10*3/uL Absolute Nucleated RBC 0.000 (0.0-0.012) X10*3/uL Nucleated RBC % (auto) 0.0 (0.0-0.2) /100WBC Sodium 139 (135-145) mmol/L Potassium 4.1 (3.3-5.1) mmol/L Chloride 105 (96-108) mmol/L Carbon Dioxide 23 (22-29) mmol/L Anion Gap 15 (12-20) BUN 16 (9-16) mg/dL Creatinine 1.15 (0.5-1.4) mg/dL Estim Creat Clear Calc 82.3 Estimated GFR > 60 Random Glucose 123 H (60-115) mg/dL Calcium 9.3 (8.4-10.2) mg/dL Troponin I High Sens 3.0 (<3.5-35.0) ng/L Independent Interpretation I performed an independent interpretation of an: Plain X-Ray Chronic Conditions History of psoriasis on biologic Discharge Plan Discharge Clinical Impression: COVID Patient Disposition: Home, Self-Care Instructions: COVID-19 (Coronavirus Disease 2019) (ED) Prescriptions: No Action aspirin [Aspir-81] 81 mg Tablet,Delayed Release (Dr/Ec) 81 mg PO DAILY lisinopril 10 mg Tablet 10 mg PO DAILY allopurinol 300 mg Tablet 300 mg PO DAILY Tremfya 100 mg/mL Auto-Injector 100 mg SUBCUT Q8W Referrals: Remigio Thorpe MD [Primary Care Provider] - 05/10/24 Print Language: Serbian
[2024-05-06] MEDS: 0.9 % Sodium Chloride 1,000 ML 999 ML IV (00:11)
[2024-05-06 03:06] VITALS: BP 110/58; PULSE 98; RESP 18; TEMP 533.3; TEMP 992; O2SAT 95
== END 2024-05-06 02:10 | disposition home or self-care (01) ==
PROVIDERS: Emergency Provider Emergency Medicine Emergency Medical Services; PCP Family Medicine
DX: U07.1 COVID-19 (principal); R06.02 Shortness of breath; R05.9 Cough, unspecified
CPT/HCPCS: 36415; 71045; 80048; 84484; 85025; 93005; 99283; 99285

== ENCOUNTER → 2024-05-05 20:02 | Outpatient (BNV) | payer MEDICARE, SELFPAY | PROVIDERS: Emergency Provider Emergency Medicine Emergency Medical Services; PCP Family Medicine; Visit Provider Internal Medicine Cardiovascular Disease | DX: R06.02 Shortness of breath (principal) | CPT/HCPCS: 93010 ==

== ENCOUNTER 2024-05-06 11:28 | Emergency (ER) | payer MEDICARE, SELFPAY ==
--- NOTE | ~2024-05-06 | XR_ITS ---
EXAMINATION: XR CHEST CLINICAL INFORMATION: Shortness of breath. Cough. COMPARISON: May 05, 2024 and March 11, 2018 TECHNIQUE: 2 views of the chest were obtained. FINDINGS: The lungs are well expanded. No focal consolidation. No pleural effusion. Cardiac silhouette is unchanged. XR/XR chest 2V IMPRESSION: No acute abnormality. Electronically signed by: Gustavo To MD 06/24/2024 09:29 AM EDT
--- NOTE | ~2024-05-06 | CT_ITS ---
EXAMINATION: CT SOFT TISSUE NECK WITH CONTRAST CLINICAL INFORMATION: Concern for abscess, pain COMPARISON: None. TECHNIQUE: Following the administration of 75 mL of Omnipaque 350 intravenous contrast, helical imaging was performed in the axial plane with generation of coronal and sagittal reformatted images. This CT examination was performed using dose optimization techniques as appropriate, variously including the following: *Automated exposure control. *Adjustment of mA and/or kV according to patient size (this includes techniques or standardized protocols for targeted exams where dose is matched to indication/reason for exam; i.e. extremities or head). *Use of iterative reconstruction technique. DLP: 841 mGy-cm. FINDINGS: Nasopharynx/Skull Base: The fat planes at the skull base and the soft tissues of the nasopharynx are within normal limits. Left maxillary sinus mucus retention cyst/polyp with additional scattered paranasal sinus polypoid mucosal thickening. The mastoid air cells are well-aerated. Suprahyoid Neck: Within the constraint of streak artifact from dental amalgam, no definite exophytic mass/lesion is seen along the oral cavity/oropharynx. The parotid and submandibular glands are within normal limits. Infrahyoid Neck: The hypopharynx, larynx, and proximal subglottic airway are within normal limits. Thyroid: The thyroid is unremarkable without identifiable nodules. Nodes: No significant cervical lymph nodes by CT size criteria. Lung Apices: Punctate calcified granuloma in the right upper lobe. Right upper lobe azygos fissure. Vascular Structures:The vascular structures are normal in appearance. Osseous Structures: Degenerative changes of the cervical spine. Other Findings: Limited intracranial evaluation is within normal limits. CT/CT soft tissue neck w IV con IMPRESSION: Layering secretions in the aerodigestive tract. No significant lymph nodes by CT size criteria. No drainable fluid collection or exophytic mass/lesion.
[2024-05-06 11:35] VITALS: BP 131/82; PULSE 72; RESP 18; TEMP 36.9; O2SAT 98; BMI 33.9
--- NOTE | 2024-05-06 11:35 | ED.GENADULT ---
HPI - General Adult General Chief complaint: Upper Respiratory Symptoms Stated complaint: Covid +, unable to swallow Time Seen by Provider: 05/06/24 15:50 Source: patient and family (patient's son) Mode of arrival: ambulatory Limitations: no limitations History of Present Illness ED Provider: Cynthia Conway PA-C HPI narrative: Patient is a 68 year old assigned male at with a history of recent COVID-19 diagnosis presenting to the emergency department today with difficulty swallowing. Patient states that he was recently diagnosed with COVID-19 and now he is having difficulty swallowing. Patient states that at first he was having trouble swallowing secondary to pain but now he feels as though something is stuck. Patient denies any dizziness, lightheadedness, abdominal pain, nausea, vomiting, fever, chills, blurry vision, double vision, loss of vision, chest pain, difficulty breathing, shortness of breath, back pain, night sweats, pain with urination, increased urinary frequency, increased urinary urgency, blood in his urine or stool, syncope or a near syncopal episode, recent trauma or falls, bowel incontinence, bladder incontinence, or any other complaints at this time. Relieving factors: none Exacerbating factors: none Associated symptoms: cough Treatments prior to arrival: none Related Data Home Medications ?Medication ?Instructions ?Recorded ?Confirmed allopurinol 300 mg tablet 300 mg PO DAILY 10/28/21 10/28/21 aspirin 81 mg tablet,delayed 81 mg PO DAILY 10/28/21 10/28/21 release guselkumab 100 mg/mL subcutaneous 100 mg subcut Q8W 10/28/21 10/28/21 auto-injector (Tremfya) lisinopril 10 mg tablet 10 mg PO DAILY 10/28/21 10/28/21 Allergies Allergy/AdvReac Type Severity Reaction Status Date / Time No Known Allergies Allergy Verified 05/06/24 11:38 [No Known Allergies*] Review of Systems Constitutional: Constitutional: Reports no additional constitutional complaints, Denies chills, Denies fever(s) and Denies night sweats Eyes: Eyes: Reports no additional eye complaints, Denies blurry vision, Denies change in vision, Denies diplopia, Denies eye discharge, Denies loss of vision and Denies eye pain ENT: Denies dizziness and Reports sore throat Cardiovascular: Cardiovascular: Reports no additional cardiovascular complaints, Denies chest pain, Denies lightheadedness, Denies Loss of Consciousness and Denies dyspnea Respiratory: Respiratory: Reports no additional respiratory complaints, Reports cough and Denies dyspnea Gastrointestinal: Gastrointestinal: Reports no additional gastrointestinal complaints, Denies abdominal pain, Denies melena, Denies hematochezia, Denies change in bowel habits and Denies change in stool character Genitourinary: Genitourinary: Reports no additional male genitourinary complaints, Denies hematuria, Denies oliguria, Denies difficulty urinating, Denies dysuria, Denies urinary frequency, Denies urinary hesitancy, Denies urinary incontinence and Denies urinary urgency Musculoskeletal: Musculoskeletal: Reports no additional musculoskeletal complaints, Denies numbness and Denies tingling Neurologic: Denies dizziness, Denies loss of vision, Denies numbness and Denies tingling Psychiatric: Psychiatric: Reports no additional psychiatric complaints Endocrine: Endocrine: Reports no additional endocrine complaints Hematologic/Lymphatic: Hematologic/Lymphatic: Reports no additional hematologic/lymphatic complaints Allergic/Immunologic: Allergic/Immunologic: Reports no additional allergic/immunologic complaints PMFSH Past Medical History Attestation statement: The following information was validated with the patient. (all information validated with the patient's son) Source: old records reviewed, obtained from family (patient's son provided additional history and confirmed the history provided by the patient) and nursing notes reviewed Medical History Family hx of colon cancer Elevated liver enzymes History of pneumonia Psoriasis Fatty liver Gout Surgical History Hx of colonoscopy Hx of arthroscopy of left knee Hx of eye surgery Hx of arthroscopy of right knee History of left inguinal hernia repair Hx of cholecystectomy Social History Social History Patient Tobacco Use Status: Never used Tobacco Advance Directives: No Advance Directives Information Provided: Yes Physical Exam ED Vital Signs: Vital Signs - 24 hr 05/06/24 11:35 05/06/24 15:01 Temperature 98.4 F 98.4 F Pulse Rate 72 73 Respiratory Rate 18 18 Blood Pressure 131/82 119/80 Pulse Oximetry 98 98 Oxygen Delivery Method Room Air BMI result Body Mass Index 33.9 Const General: cooperative, no acute distress, alert and awake Nutritional Appearance: well nourished Orientation/consciousness: patient oriented x3 Limitations: no limitations HENMT Head: Yes normal to inspection and Yes atraumatic Ears: hearing grossly normal bilaterally and external ears normal General nose exam: Normal external nose present, no nasal discharge noted and no epistaxis Face and sinus: Yes normal facial exam, No abrasion and No laceration Mouth: Normal oral and palatal mucosa present, no drooling and no muffled voice Eyes General: appearance normal, both eyes and all related structures Periorbital: periorbital findings normal Eyelids: Yes eyelids normal Conjunctivae: conjunctivae normal Pupils: Equal, round and reactive pupils present EOM: EOMs intact bilaterally Neck Neck: Yes normal visual inspection, Yes full ROM and Yes no lymphadenopathy Chest Chest palpation & inspection: normal inspection of the chest Resp Effort & Inspection: normal respiratory effort and able to speak in complete sentences GI Inspection: Yes normal to inspection Neuro General: patient oriented x3 and moves all extremities Cranial nerves: Yes Equal, round and reactive pupils present Cognition (Neuro): normal cognition Extrem General: Yes normal to inspection, Yes full ROM and Yes capillary refill normal Psych Appearance: grossly normal Mental Status: mental status grossly normal Affect: normal affect Attitude: cooperative Thought process: Normal thought process present Thought content: Normal thought content present Insight: Good insight present (Psych) Course Course Course Narrative: This is an RME performed by Lori Garvin CNP: Additional HPI, ROS, PE not included below will be deferred to primary provider. Patient is a 68-year-old male who presents to the emergency department for evaluation, he recently tested positive for COVID-19, contacted his doctor's office today as he was complaining of shortness of breath a severe sore throat and inability to swallow. states I take a sip of water and it's like I'm drowning and it comes back up . Has audible productive cough, clear phlegm with cough. LS coarse at apices, diminished at bases When asked he states he feels slightly better than yesterday. Received expect call from his physician Dr. Thorpe, concern for aspiration. 15:00 - Re-evaluation ; patient reports that he is not feeling any better, requesting to be medicated for his fever, repeat temp of 98.4 orally. Speaking full sentences, expectorating phlegm. By patients account, PCP told him he needed to be admitted. Medications Administered Discontinued Medications Generic Name Dose Route Start Last Admin Trade Name Keon PRN Reason Stop Dose Admin Dexamethasone Sodium Phosphate 10 mg 05/06/24 16:04 05/06/24 17:16 Dexamethasone Sod Phosphate 10 Mg/Ml Vial PO 05/06/24 16:05 10 mg ONCE ONE Administration Sodium Chloride 1,000 mls @ 999 mls/hr 05/06/24 16:15 05/06/24 18:02 Ns IV 05/06/24 17:15 Infused .Q1H1M ANNA Infusion Iohexol 100 ml 05/06/24 16:40 05/06/24 16:40 Iohexol 350 Mg/Ml 100 Ml Infus..Btl IV 05/06/24 16:41 75 ml ONCE ONE Administration Ketorolac Tromethamine 15 mg 05/06/24 16:04 05/06/24 17:09 Ketorolac Tromethamine 15 Mg/Ml Vial IVPUSH 05/06/24 16:05 15 mg ONCE ONE Administration Medical Decision Making Medical Decision Making [facility] Narrative: Patient is a 68 year old assigned male at with a history of recent COVID-19 diagnosis presenting to the emergency department today with difficulty swallowing / throat pain. Patient's physical exam was unremarkable. Patient's blood work was unremarkable. Patient's CT soft tissue neck is pending. I explained my physical exam findings as well as all test results to the patient and the patient's son. I answered all questions asked by the patient and the patient's son. Patient was given IV fluids and PO Decadron which he stated helped his symptoms some. Patient is able to tolerate PO fluids at this time. Patient will be signed out to [facility] ANTHON[facility] pending CT soft tissue read. If read is negative for any acute process, patient to be discharged home. Differential Diagnosis Differential Diagnoses: The differential diagnosis associated with the presentation includes Sore throat COVID-19 Admission/Observation Consideration of admission/observation: Escalation of care including admission/observation considered Patient's disposition will be determined after CT soft tissue scan is read and a re-evaluation occurs. Lab Data [facility] Lab Attestation statement: I reviewed the patient's lab results. My interpretation of these results are in the MDM Rationale portion of this note. 05/06/24 11:55 05/06/24 11:55 Labs: Lab Results 07/19/24 Range/Units 11:55 WBC 8.8 (4.8-10.8) X10*3/uL RBC 4.61 (4.60-5.80) X10*6/uL Hgb 15.1 (14.0-18.0) g/dl Hct 44.0 (42.0-52.0) % MCV 95.4 (80.0-98.0) fL MCH 32.8 (27.0-33.0) pg MCHC 34.3 (31.0-36.0) g/dl RDW 13.0 (11.0-16.0) % Plt Count 126 L (160-400) X10*3/uL MPV 10.0 (9.4-12.4) fL Immature Gran % (Auto) 0.3 (0.0-0.4) % Neut % (Auto) 68.6 (45-73) % Lymph % (Auto) 17.2 L (20-40) % [place] % (Auto) 13.7 H (2-11) % Eos % (Auto) 0.0 (0-4) % Baso % (Auto) 0.2 (0-2) % Lymph # (Auto) 1.5 (1.2-4.9) X10*3/uL [place] # (Auto) 1.2 (0.1-1.2) X10*3/uL Eos # (Auto) 0.0 (0.0-0.4) X10*3/uL Baso # (Auto) 0.0 (0.0-0.2) X10*3/uL Abs Immat Gran (auto) 0.03 (0.00-0.03) X10*3/uL Absolute Neuts (auto) 6.0 (2.0-8.3) x10*3/uL Absolute Nucleated RBC 0.000 (0.0-0.012) X10*3/uL Nucleated RBC % (auto) 0.0 (0.0-0.2) /100WBC Sodium 141 (135-145) mmol/L Potassium 4.3 (3.3-5.1) mmol/L Chloride 105 (96-108) mmol/L Carbon Dioxide 26 (22-29) mmol/L Anion Gap 14 (12-20) BUN 14 (9-16) mg/dL Creatinine 1.14 (0.5-1.4) mg/dL Estim Creat Clear Calc 82.8 Estimated GFR > 60 Random Glucose 97 (60-115) mg/dL Calcium 9.5 (8.4-10.2) mg/dL Independent Interpretation I performed an independent interpretation of an: Plain X-Ray Interpretation: Patient's chest x-ray was read during PACS downtime. Radiologist read it as no acute process. Radiology Impression Discussion of test interpretation with radiology: I have reviewed the radiologist's reading. Radiologist Impression: CT/CT soft tissue neck w IV con IMPRESSION: Layering secretions in the aerodigestive tract. No significant lymph nodes by CT size criteria. No drainable fluid collection or exophytic mass/lesion. Independent Historian Clinical information obtained from an independent historian. History obtained from or confirmed by: Other (patient's son provided additional history and confirmed the history provided by the patient.) Discharge Plan Discharge Clinical Impression: COVID, Acute sore throat Patient Disposition: Home, Self-Care Instructions: Pharyngitis (ED), COVID-19 (Coronavirus Disease 2019) (ED) Additional Instructions: CT scan was without any abnormality. Be sure to rest, stay well hydrated drinking plenty of fluids, eat small frequent meals. Mucinex utilized to help being able to cough out the phlegm/secretions. Avoid any cough suppressants that may be found [id number] at the pharmacy as it is important that the phlegm is coughed out rather than suppressed and allowed to potentially settle deeper into the lungs. Tylenol/ibuprofen can be used as needed for fever/pain. You may return to the emergency department with any new or worsening symptoms or concerns. Follow-up with your primary care provider as needed. Should remain out of school/ work until symptoms have resolved and have been without a fever for 24 hours without the use of Tylenol or ibuprofen. Prescriptions: No Action aspirin [Aspir-81] 81 mg Tablet,Delayed Release (Dr/Ec) 81 mg PO DAILY lisinopril 10 mg Tablet 10 mg PO DAILY allopurinol 300 mg Tablet 300 mg PO DAILY Tremfya 100 mg/mL Auto-Injector 100 mg SUBCUT Q8W Referrals: Remigio Thorpe MD [Primary Care Provider] - Print Language: Marshallese
[2024-05-06 11:58] LABS: MANUAL DIFF FLAG NO
[2024-05-06 12:00] LABS: Basophils Percent Auto 0.2 % (0-2); Hemoglobin 15.1 g/dl (14.0-18.0); Imm Gran Abs Auto 0.03 X10*3/uL (0.00-0.03); Imm Gran Pct Auto 0.3 % (0.0-0.4); Lymphocytes Absolute Auto 1.5 X10*3/uL (1.2-4.9); Lymphocytes Percent Auto 17.2 % (20-40); Mean Corpuscular HGB Conc 34.3 g/dl (31.0-36.0); Mean Corpuscular Hemoglobin 32.8 pg (27.0-33.0); Mean Corpuscular Volume 95.4 fL (80.0-98.0); Monocytes Absolute Auto 1.2 X10*3/uL (0.1-1.2); Monocytes Percent Auto 13.7 % (2-11); Neutrophils Percent Auto 68.6 % (45-73); Platelet Count 126 X10*3/uL (160-400); Red Blood Count 4.61 X10*6/uL (4.60-5.80); White Blood Count 8.8 X10*3/uL (4.8-10.8)
[2024-05-06 12:42] LABS: Anion Gap 14 (12-20); Blood Urea Nitrogen 14 mg/dL (9-16); Calcium 9.5 mg/dL (8.4-10.2); Carbon Dioxide 26 mmol/L (22-29); Chloride 105 mmol/L (96-108); Creatinine Clr Calc Pharmacy 82.8; Estimated Glomerular Filt Rate > 60; Glucose Random 97 mg/dL (60-115); Potassium 4.3 mmol/L (3.3-5.1); Sodium 141 mmol/L (135-145)
[2024-05-06 15:01] VITALS: BP 119/80; PULSE 73; RESP 18; TEMP 36.9; O2SAT 98
[2024-05-06] MEDS: 0.9 % Sodium Chloride 1,000 ML 999 ML IV (16:35)
[2024-05-06] MEDS: iohexoL 350 MG/ML 100 ML INFUS..BTL IV (16:40)
[2024-05-06] MEDS: Ketorolac Tromethamine 15 MG/ML VIAL IVPUSH (17:09)
[2024-05-06] MEDS: dexAMETHasone sod phosphate 10 MG/ML VIAL PO (17:16)
[2024-05-06 19:56] VITALS: BP 130/80; PULSE 74; RESP 18; TEMP 37; O2SAT 98
[2024-05-06 19:59] VITALS: BP 130/80; PULSE 74; RESP 18; TEMP 37; O2SAT 98
== END 2024-05-06 20:00 | disposition home or self-care (01) ==
PROVIDERS: Nurse Practitioner Family; Emergency Provider Student in an Organized Health Care Education/Training Program; PCP Family Medicine
DX: U07.1 COVID-19 (principal); J02.9 Acute pharyngitis, unspecified
CPT/HCPCS: 36415; 70491; 71046; 80048; 85025; 96361; 96374; 99284; 99285; J1100; J1885; Q9967

== ENCOUNTER 2024-09-07 08:48 | Outpatient (REF) | payer MEDICARE, SELFPAY ==
[2024-09-07 10:26] LABS: Estimated Average Glucose 108 mg/dL; Hemoglobin A1C 154.5305 umol/L; Hemoglobin A1c % 5.4 % (<6.0); Total Hemoglobin (HGBA1C) 4315.4043 umol/L
[2024-09-07 10:38] LABS: Alanine Aminotransferase 41 U/L (0-40); Aspartate Amino Transferase 33 U/L (5-37); Glucose Fasting 111 mg/dL (60-99)
[2024-09-07 10:51] LABS: Microalbum/Creatinine Ratio Ur 6.5 ug/mg cr (<30)
== END 2024-09-07 08:49 | disposition home or self-care (01) ==
LOC: HO.HMGCLDS 08:48
PROVIDERS: PCP Family Medicine; Visit Provider Family Medicine
DX: E11.9 Type 2 diabetes mellitus without complications (principal); K75.81 Nonalcoholic steatohepatitis (NASH)
CPT/HCPCS: 36415; 82043; 82570; 82947; 83036; 84450; 84460

== ENCOUNTER 2025-03-14 07:55 | Outpatient (REF) | payer MEDICARE, SELFPAY ==
--- OUTSIDE RECORDS SUMMARY | 2025-03-14 07:58 | XMS_ITS | Patient Health Record ---
Author Organization [facility] Address [address] [place] [address] Care Team Providers Care Wood Polisher Name Role Phone Maurilio ROBLES, Remigio Primary Care Provider UnavailJhonny Banda [phone] Allergies No Known Allergies Reason For Referral No Information Medications Medication SIG (Take, Route, Frequency, Duration) Notes Start Date End Date Status Allopurinol 300 MG 1 tablet Orally Once a day Active Lisinopril 10 MG 1 tablet Orally Once a day Active Humira 40 MG/0.8ML 0.8 ml Subcutaneous every 2 weeks Not-Taking Naprosyn 250 MG 1 tablet Orally Twic e a day Not-Taking Aspirin 81 81 MG 1 tablet Orally Once a day for 30 day(s) Active Tremfya 100 MG/ML as directed Subcutaneous Q 60 days Active Immunizations Vaccine Route Administration Date Status Comme nts Influenza Unknown 09/04/2021 Administered Problems Problem Type SNOMED Code ICD Code Onset Dates Problem Status W/U Status Risk Notes Problem 973781202 Encounter for screening for malignant neoplasm of colon (Z12.11) Active confirmed Problem 645054438 History of adenomatous polyp of colon (Z86.010) Active confirmed Problem Screening for malignant neoplasm of rectum (980770233) Encounter for screening for malignant neoplasm of rectum (Z12.12) Active confirmed Problem 889848677 Elevated liver enzymes (R74.8) Active confirmed Problem 045868092 Fatty liver (K76.0) Active confirmed Problem 012414456 Family history o f colon cancer (Z80.0) Active confirmed Problem Diverticulosis of colon (994533358) Diverticulosis of colon (K57.30) Active confirmed Plan Of Treatment Pending Test Test Name Order Date LIVER PROFILE 02/27/2016 LIVER PROFILE 09/03/2016 LIVER PROFILE 10/02/2021 HCV LIVER FIBROSIS, FIBRO TEST 6 US ABDOMEN COMP WITH ELASTOGRAPHY 2020 Liver Fibrosis Pnl 10/02/2021 Future Test Test Name Order Date COLONOSCOPY 08/29/2015 COLONOSCOPY 10/02/2021 Insurance Providers Payer Name Payer Address Payer Phone Subscriber Number Group Number Insured Name Patient Relationship to Insured Coverage Start Date Coverage End Date [facility] [address] [place] [phone] [id number] ANIYA LOBO Self - patient is the insured Medical (General) History Medical History History ICD Code Colonoscopy 08-06-2001--hyperplastic hermila yps and internal hemorrhoids Screening colonoscopy in Oct revealed small tubular adenomas that were removed, mild sigmoid diverticulosis, and small internal hemorrhoids Gout Denies RI,DM,CVA,Lung disease,renal dise ase ? Fatty liver--previously on U rsodiol---biopsy in 2003 mild to moderate steatohepatitis and slight increase in fibrosis; liver w/u was negative otherwise including hepatitis B and C serologies, iron studies, [id number] level, ceruloplasmin level, and autoimmune studies. Pneumonia Psoriasis-Dr. Wynn Screening colonoscopy in Oct of 2021 with only a small hyperplastic polyp removed Surgical History Surgery Date(Month/Year) cholecystectomy hernia surgery--left inguinal hernia right knee arthroscopy eye surgery cyst removal left knee arthroscopy
[2025-03-14 10:25] LABS: Estimated Average Glucose 111 mg/dL; Hemoglobin A1c % 5.5 % (<6.0)
[2025-03-14 10:45] LABS: Alanine Aminotransferase 45 U/L (0-40); Albumin Level 4.4 g/dL (3.5-5.0); Alkaline Phosphatase 57 U/L (39-117); Anion Gap 13 (12-20); Aspartate Amino Transferase 39 U/L (5-37); Bilirubin Direct 0.3 mg/dL (0.0-0.5); Bilirubin Total 0.8 mg/dL (0.0-1.0); Blood Urea Nitrogen 16 mg/dL (9-16); Carbon Dioxide 26 mmol/L (22-29); Chloride 106 mmol/L (96-108); Cholesterol 167 mg/dL (<200); Estimated Glomerular Filt Rate > 60; Glucose Fasting 113 mg/dL (60-99); HDL Cholesterol 40 mg/dL (>40); LDL Cholesterol Calculated 103 mg/dL (<100); Potassium 4.5 mmol/L (3.3-5.1); Sodium 140 mmol/L (135-145); Total Protein 6.8 g/dL (6.5-8.0); Triglycerides 122 mg/dL (<150)
[2025-03-14 10:49] LABS: Creatinine Urine 78.55 mg/dL; Microalbum/Creatinine Ratio Ur 7.6 ug/mg cr (<30)
== END 2025-03-14 07:56 | disposition home or self-care (01) ==
LOC: HO.HMGCLDS 07:55
PROVIDERS: PCP Family Medicine; Visit Provider Family Medicine
DX: I10 Essential (primary) hypertension (principal); E11.9 Type 2 diabetes mellitus without complications; E78.00 Pure hypercholesterolemia, unspecified; K75.81 Nonalcoholic steatohepatitis (NASH)
CPT/HCPCS: 36415; 80051; 80061; 80076; 82043; 82565; 82570; 82947; 83036; 84520

== ENCOUNTER 2025-07-12 08:09 | Outpatient (AMB) | payer MEDICARE, SELFPAY ==
--- NOTE | 2025-07-12 08:06 | A.OFFPC_ITS ---
Vital Signs 07/12/25 08:18 Height 6 ft Weight 260 lb BMI 35.3 BP 122/80 Blood Pressure Location Rt brachial Position Sitting Pulse 87 Pulse Source Pulse Oximeter Temp 97.7 F Temp Source Temporal Artery Scan Pulse Oximetry (%) 97 Oxygen Delivery Method Room Air Intake Visit Reasons: 4 MONTH FOLLOW UP-REESE PT Video And Sound Recorder Required: No Accompanied by: Self / Same As Patient Allergies No Known Allergies (No Known Allergies*) Allergy (Verified 07/12/25 08:06) Medication List - Last Reconciled 07/12/25 by Pardeep Arrieta MD allopurinol 300 mg PO DAILY aspirin 81 mg PO DAILY guselkumab (Tremfya) 100 mg subcut Q8W lisinopril 5 mg PO DAILY Tobacco use date assessed: 07/12/25 Fall risk assessment: No Falls in past year Last assessed Fall Risk: 07/12/25 Dental Screening Dental Screen Date: 07/12/25 Did you have a dental visit in the last 12 months?: Yes Did you have a dental problem in the last 6 months where you did not have access to dental care?: No HPI HPI Comments History of Present Illness Details The patient is a 69-year-old male presenting for the management of his chronic medical conditions, specifically focusing on elevated cholesterol. The patient reports a long-standing history of essential hypertension for which he h as been taking Lisinopril. Initially, he was on Lisinopril 10 mg, which he tapered to 5 mg under previous instruction and has been taking since February. He also has a history of gout managed with Allopurinol 300 mg and psoriasis, for which multiple treatments have been tried, including Stelara. The patient describes his psoriasis as severe in the past, affecting areas including the armpits, face, and ears, although currently, it is somewhat under control with itchy ears persisting as a symptom. He has a significant family history of various cancers and heart disease. His recent laboratory work in March revealed elevated liver enzymes, which have been chronically elevated for 30 years due to occupational exposure to environmental toxins. The patient was also informed of his elevated cholesterol levels which were measured at a total cholesterol of 167 mg/dL, with a risk assessment indicating a 17% risk of developing a cardiac event. He is aware that dietary habits, such as consumption of processed foods and alcohol intake, may contribute to his cholesterol levels. The patient's family history of cardiovascular incidents further supports the need to address his cholesterol to mitigate cardiac risks. Medical History: - Essential Hypertension - Gout - Psoriasis - Elevated Cholesterol - Chronic elevation of liver enzymes due to previous occupational exposure - Persistent itchy ears, possibly linked to psoriasis - Family history of multiple cancers and heart disease Surgical History: - Knee surgeries - Cholecystectomy (Gallbladder removal) - Foreign body removal (shoe piece from foot in childhood) - Foot injury repair from pallet antoinette in cident - Hand injury repair after saw incident Medications: - Lisinopril 5 mg for Essential Hyperten ev - Allopurinol 300 mg for Gout - Aspirin 81 mg for heart health - Trumfaya for Psoriasis Family History: - Father of colon cancer and had a quadruple bypass - Mother of cancer - Brother with skin, esophageal, bladder , and colon cancers - Sister with breast cancer - Family history of gout Diagnostic Results: - Elevated liver enzymes noted chronical ly due to workplace exposure - Recent cholesterol levels indicating e levated cholesterol with a total cholesterol of 167 mg/dL Social: - Retired, maintains an active lifestyle with regular golf - Alcohol intake: beer, one to two drink s, five to six days a week - No smoking history; brief trial in you th - History of occupational exposure to en vironmental toxins - Maintains activity level through golf [facility] Medical History (Updated 07/12/25 @ 08:42 by Pardeep Arrieta MD) Hypertriglyceridemia Hypertension Family hx of colon cancer Elevated liver enzymes History of pneumonia Psoriasis Fatty liver Gout Surgical History Hx of colonoscopy Hx of arthroscopy of left knee Hx of eye surgery Hx of arthroscopy of right knee History of left inguinal hernia repair Hx of cholecystectomy Family History (Updated 07/12/25 @ 08:25 by Garima Church MA) Mother No problems noted. Father Rectal cancer Social History Housing: House Patient Tobacco Use Status: Former Tobacco user e-Cigarette/Vaping Use: Former Use service: No Current occupational status: retired Cognitive needs: No Hearing needs: No Vision needs: Yes (rx glasses) Questionnaire PHQ-9 Over the last 2 weeks, how often have you been bothered by any of the following problems? 1. Little interest or pleasure in doing things: not at all 2. Feeling down, depressed, or hopeless: not at all 3. Trouble falling or staying asleep, or sleeping too much: not at all 4. Feeling tired or having little energy: not at all 5. Poor appetite or overeating: not at all 6. Feeling bad about yourself - or that you are a failure or have let yourself or your family down: not at all 7. Trouble concentrating on things, such as reading the newspaper or watching television: not at all 8. Moving or speaking so slowly that other people could have noticed. Or the opposite - being so fidgety or restless that you have been moving around a lot more than usual: not at all 9. Thoughts that you would be better off or of hurting yourself in some way: not at all Total score: 0 Depression Screening Interpretation: Negative Depression Screening Done: Yes 01012 - PHQ-9 Billing: Yes Source: Developed by Drs. Jhonny Rosado, Altagracia Culp, Km Edmonds and colleagues, with an educational evangelist from [employer]. Thrive Questionnaire Date Thrive assessed: 07/12/25 I am a: Patient What is your living situation today?: I have a steady place to live Within the past 12 months, did the food you bought not last and you didn't have the money to get more?: Never true Within the past 12 months, did you worry whether your food would run out before you got money to buy more?: Never true Do you have trouble paying for medicines?: No Do you have trouble getting transportation to medical appointments?: No Do you have trouble paying your heating and electricity bill?: No Do you have trouble taking care of your child, family member or friend?: No Do you have trouble with day-to-day activities such as bathing, preparing meals, shopping, managing finances, etc.?: No Are you currently unemployed and looking for a job?: No Are you interested in more education?: No THRIVE Score: 0 AUDIT C Alcohol Use Questionnaire (AUDIT-C) 1. How often do you have a drink containing alcohol?: 4 or more times a week 2. How many drinks containing alcohol do you have on a typical day when you are drinking?: 1 or 2 3. How often do you have six or more drinks on one occasion?: Less than monthly Total Score: 5 Score Reviewed/Action Taken: Yes DAVIAN-7 AMB Questionnaire DAVIAN-7 Date DAVIAN - 7 assessed: 07/12/25 Feeling nervous, anxious, or on edge: 0 = Not at all Not being able to stop or control worryin = Not at all Worrying too much about different things: 0 = Not at all Trouble relaxin = Not at all Being so restless that it is hard to sit still: 0 = Not at all Becoming easily annoyed or irritable: 0 = Not at all Feeling afraid as if something awful might happen: 0 = Not at all Total DAVIAN-7 score (0-4 normal; 5-9 mild; 10-14 moderate; 15-21 severe): 0 Source: Developed by Drs. Jhonny Rosado, Altagracia Culp, Km Edmonds and colleagues, with an educational evangelist from [employer]. DAVIAN-7 Assessment Billing DAVIAN-7 Assessment Tool: DAVIAN-7 Assessment 95037 Review of Systems Const Details: - Constitutional: Denies recent weight changes, fever - Dermatologic: Reports history of psoriasis with current itchy ears - Cardiovascular: Denies chest pain - Gastrointestinal: Denies nausea, vomiting, diarrhea - Neurological: Denies headaches - Respiratory: Denies shortness of breath All systems reviewed & are unremarkable except as reviewed in HPI and above Physical exam (Primary Care) Vital Signs: Last Vital Signs Temp 97.7 F 07/12/25 08:18 Pulse 87 07/12/25 08:18 BP 122/80 07/12/25 08:18 Pulse Ox 97 07/12/25 08:18 Oxygen Delivery Method Room Air 07/12/25 08:18 BMI result Body Mass Index 35.3 Tobacco/Smoking Status: Tobacco use Status Tobacco use date assessed 07/12/25 07/12/25 08:07 Patient Tobacco Use Status Former Tobacco user 07/12/25 08:25 e-Cigarette/Vaping Use Former Use 07/12/25 08:25 PHQ-9: PHQ-9 Score PHQ-9: Total score 0 07/12/25 08:34 Depression Screening Interpretation: Negative Thrive Assessment: Date of Thrive Assessment Date Thrive assessed 07/12/25 07/12/25 08:07 Const Other: General: +Alert and oriented, Well nourished, No acute distress. Eye: Pupils are equal, round and reactive to light, Intact accommodation, Extraocular movements are intact, Normal conjunctiva, Vision unchanged. HENT: Normocephalic, Atraumatic, Tympanic membranes are clear, Normal hearing, Oral mucosa is moist, No pharyngeal erythema, Ear canals patent, Itchy ears possibly due to psoriasis. Respiratory: Lungs CTA bilaterally, No wheeze, Respirations are non-labored. Cardiovascular: Regular rate, Regular rhythm, S1 auscultated, S2 auscultated, No murmur, Good pulses equal in all extremities, Normal peripheral perfusion, No edema. Gastrointestinal: Soft, Non-tender, Non-distended, Normal bowel sounds, No organomegaly. Musculoskeletal: Normal range of motion, Normal strength, No tenderness, No swelling, No deformity, Normal gait. Integumentary: Warm, Dry, [place], Intact, Psoriasis lesions noted on face, scalp, and ears. Neurologic: Alert, Oriented, Normal sensory, Normal motor function, No focal defects, Cranial Nerves II-XII are grossly intact, Normal deep tendon reflexes. Psychiatric: Cooperative, Appropriate mood & affect, Normal judgment. Coding Level of Care Code New Pt Level 4 (21264) Complex EM visit Add On G2211 Diagnoses Primary hypertension I10 Hypertension type: primary hypertension Hypertriglyceridemia E78.1 Gout, unspecified cause, unspecified chronicity, unspecified site M10.9 Chronicity: unspecified Gout etiology: unspecified cause Gout site: unspecified site Psoriasis L40.9 Elevated liver enzymes R74.8 Additional Codes DAVIAN-7 Assessment Billing - DAVIAN-7 Assessment Tool: DAVIAN-7 Assessment 08892 ([id number]) PHQ-9 - 46530 - PHQ-9 Billing: Yes ([id number]) Assessment & Plan Assessment & Plan (1) Hypertension: Comment: - Continue Lisinopril 5 mg daily. - Monitor blood pressure regularly, adjustments as needed. Code(s): I10 - Essential (primary) hypertension Category: Medical Qualifiers: Hypertension type: primary hypertension Qualified Code(s): I10 - Essential (primary) hypertension (2) Hypertriglyceridemia: Comment: - LDL elevated and ASCVD risk of 17% therefore will initiate statins. - Begin Atorvastatin 20 mg at night. Code(s): E78.1 - Pure hyperglyceridemia Category: Medical (3) Gout: Comment: - Continue Allopurinol 300 mg daily as current management effective. Code(s): M10.9 - Gout, unspecified Category: Medical Qualifiers: Chronicity: unspecified Gout etiology: unspecified cause Gout site: unspecified site Qualified Code(s): M10.9 - Gout, unspecified (4) Psoriasis: Comment: - Maintain the current regimen of Trumfaya; monitor symptoms, particularly the ears (moisturizer in the ear) Code(s): L40.9 - Psoriasis, unspecified Category: Medical (5) Elevated liver enzymes: Comment: Underwent extensive workup for his elevated liver enzymes and also inclusive of a liver biopsy that is been unremarkable. We will continue to monitor liver enzymes during regular blood work Code(s): R74.8 - Abnormal levels of other serum enzymes Category: Medical Plan: Health maintenance - Discussed initiation of moderate-intensity statin due to elevated ASCVD risk. - Advised on reducing intake of processed foods and alcohol to support heart and liver health. - Encouraged ongoing physical activity and exercise through golf and daily routines. - Reinforced importance of regular screenings, especially colonoscopies, given family history. Patient was informed and verbally consented to the use of an ambient scribe for clinic note documentation during this visit. Plan During the visit, I discussed with the patient his current chronic conditions, including psoriasis, hypertension, gout, and elevated cholesterol. We focused on the need to manage his cholesterol proactively due to his elevated ASCVD risk, prescribing Atorvastatin to mitigate cardiac events risk. We reviewed his medication regimen, advising continued use for psoriasis and blood pressure. The patient expressed understanding of lifestyle changes beneficial for heart health, notably reducing alcohol and processed food intake. Follow-up in six months was suggested unless issues arise sooner. Patient reveals awareness of his familial risk for cardiovascular issues, making these measures vital for his continued health. Medications: New atorvastatin (Lipitor) 20 mg PO BEDTIME 90 tabs 3RF Patient Instructions: - Take Atorvastatin 20 mg nightly for cholesterol. - Continue current medications for blood pressure, gout, and psoriasis. - Use moisturizer ointment on ears as needed for itch relief. - Monitor blood pressure regularly. - Reduce alcohol and avoid processed foods. - Engage in regular exercise like golf. - Schedule and complete a colonoscopy as recommended. - Follow up in six months or sooner if necessary.
[2025-07-12 08:18] VITALS: BP 122/80; PULSE 87; TEMP 36.5; O2SAT 97; BMI 35.3
== END 2025-07-12 08:43 | disposition home or self-care (01) ==
LOC: HO.HMCHD 08:10
PROVIDERS: PCP Student in an Organized Health Care Education/Training Program; Visit Provider Student in an Organized Health Care Education/Training Program
DX: I10 Essential (primary) hypertension (principal); E78.1 Pure hyperglyceridemia; M10.9 Gout, unspecified; L40.9 Psoriasis, unspecified; R74.8 Abnormal levels of other serum enzymes

== ENCOUNTER → 2025-07-12 08:09 | Outpatient (BNVA) | payer MEDICARE, SELFPAY | PROVIDERS: PCP Family Medicine; Visit Provider Student in an Organized Health Care Education/Training Program | DX: I10 Essential (primary) hypertension (principal); E78.1 Pure hyperglyceridemia; M10.9 Gout, unspecified; L40.9 Psoriasis, unspecified; R74.8 Abnormal levels of other serum enzymes; Z79.899 Other long term (current) drug therapy; Z13.31 Encounter for screening for depression; Z13.39 Encounter for screening examination for other mental health and behavioral disorders | CPT/HCPCS: 96127; 99202 ==